=== PATIENT | female | born 1950 | race Caucasian/White ===

== ENCOUNTER 2019-04-18 12:54 | Emergency (ER) | payer MEDICARE, MEDICAID ==
[~2019-04-18] VITALS: Ht 152.4 cm; Wt 66.3 kg
[2019-04-18 12:59] VITALS: BP 142/82
[2019-04-18] MEDS ORDERED: CLINDAMYCIN 300 MG in DEXTROSE 5% 50 ML IV ONE (14:15)
[2019-04-18] MEDS ORDERED: BACITRACIN OINT 500 UNITS/GM PKT TP ONE ×2 (14:15→14:37)
[2019-04-18] MEDS ORDERED: CLINDAMYCIN 600 MG/4 ML VIAL ONE (14:28)
[2019-04-18] MEDS ORDERED: CLINDAMYCIN 600 MG/4 ML VIAL IM ONE (14:45)
[2019-04-18 15:05] VITALS: BP 152/79
== END 2019-04-18 15:05 | disposition home or self-care (01) ==
LOC: MED 12:54
DX: S41.152A Open bite of left upper arm, initial encounter (principal); S71.151A Open bite, right thigh, initial encounter; F17.210 Nicotine dependence, cigarettes, uncomplicated; Z88.0 Allergy status to penicillin; W54.0XXA Bitten by dog, initial encounter; Y93.89 Activity, other specified; Y92.89 Other specified places as the place of occurrence of the external cause; Y99.8 Other external cause status
CPT/HCPCS: 96372; 99283; J3490